=== PATIENT | female | born 1960 | race Hispanic/Latino ===

== ENCOUNTER 2017-12-14 07:40 | Day surgery (SDC) | payer SELFPAY ==
[2017-12-14] MEDS ORDERED: DILAUDID ONE ×3 (09:44→12:02)
[2017-12-14] MEDS ORDERED: XYLOCAINE MPF 2% ONE (09:44)
[2017-12-14] MEDS ORDERED: DIPRIVAN 10 MG/ML IV ONE (09:44)
[2017-12-14] MEDS ORDERED: DILAUDID IV PRN (09:47)
[2017-12-14] MEDS ORDERED: ZOFRAN IV PRN (09:47)
--- NOTE | 2017-12-14 09:47 | Anesthesia Day of Surgery ---
Anesthesia Day of Surgery - Day of Surgery Patient Examined: Yes Patient H&P Reviewed: Yes Patient is NPO: Yes
--- NOTE | 2017-12-14 09:47 | Anesthesia Consultation ---
Anesthesia Consult and Med Hx Date of service: 12/14/17 - Airway Anesthetic Teeth Evaluation: Good ROM Head & Neck: Adequate Mental/Hyoid Distance: Adequate Mallampati Class: Class II Intubation Access Assessment: Probably Good - Pulmonary Exam CTA: Yes - Cardiac Exam Cardiac Exam: RRR - Pre-Operative Health Status ASA Pre-Surgery Classification: ASA2 Proposed Anesthetic Plan: General - Pulmonary Hx Smoking: Yes (QUIT 30 YEARS AGO) - Cardiovascular System Hx Hypertension: Yes (5 YEARS. HL) - Central Nervous System Hx Psychiatric Problems: No - Other Systems Hx Alcohol Use: Yes (SOCIALLY) Hx Substance Use: No Hx Obesity: Yes
[2017-12-14] MEDS ORDERED: ANCEF/STERILE WATER 2 GM/20 ML 2 GM/20 ML SYRINGE IV NR (10:00)
[2017-12-14] MEDS ORDERED: LACTATED RINGERS 1,000 ML IV SCH (10:00)
[2017-12-14] MEDS ORDERED: ZEMURON IV ONE (10:04)
[2017-12-14] MEDS ORDERED: ADRENALIN ONE (10:25)
[2017-12-14] MEDS ORDERED: NACL 0.9% 500 ML IRRIGATION ONE (10:30)
[2017-12-14] MEDS ORDERED: XYLOCAINE 1% 20 mL INFILTRATI ONE (10:30)
[2017-12-14] MEDS ORDERED: XYLOCAINE 1%/ EPI 1:100,000 INFILTRATI ONE ×2 (10:30→11:03)
[2017-12-14] MEDS ORDERED: NACL 0.9% IR ONE (10:30)
[2017-12-14] MEDS ORDERED: LACTATED RINGERS IV ONE (10:30)
[2017-12-14] MEDS ORDERED: ADRENALIN IR ONE (10:30)
[2017-12-14] MEDS ORDERED: ZOFRAN ONE (10:57)
[2017-12-14] MEDS ORDERED: DECADRON ONE (10:57)
[2017-12-14] MEDS ORDERED: XYLOCAINE 1% 20 mL ONE (11:12)
[2017-12-14] MEDS ORDERED: NACL 0.9% 500 ML 500 ML ONE (11:28)
[2017-12-14] MEDS ORDERED: LOPRESSOR IV ONE (12:44)
[2017-12-14] MEDS ORDERED: PERCOCET 5/325 PO PRN (14:35)
--- NOTE | 2017-12-14 14:44 | Short Stay Summary ---
Short Stay Documentation Date of service: 12/14/17 Narrative H&P: 57 year old female with unacceptable cosmetic appearance underwent liposuction of the axilla, bra rolls and posterior waistline with fat grafting to the buttocks and hips. - History Past Medical History: hypertension Past Surgical History: hysterectomy, Other (Liposuction, breast reduction) Social history: , lives with family - Allergies and Medications Current Medications: Allergies No Known Allergies Allergy (Verified 12/13/17 15:40) Home Medications Medication Instructions Recorded Confirmed Last Taken Type Atorvastatin Calcium [Lipitor] 80 mg PO DAILY 12/13/17 12/13/17 Unknown History Lisinopril/Hydrochlorothiazide 1 tab PO QDAY 12/13/17 12/13/17 Unknown History [Zestoretic 20-12.5 mg] Active Medications Hydromorphone HCl (Dilaudid) 0.5 mg IV Q10MIN PRN PRN Reason: Pain , Severe (7-10) Stop: 12/14/17 23:00 Lactated Ringer's (Lactated Ringers) 1,000 mls @ 100 mls/hr IV DIRECT ALEXUS Last Admin: 12/14/17 10:18 Dose: 100 mls/hr Cefazolin Sodium (Ancef/Sterile Water 2 Gm/20 Ml) 2 gm in 20 mls @ 80 mls/hr IV PREOP NR; Protocol Stop: 12/14/17 23:00 Ondansetron HCl (Zofran) 4 mg IV ONCE PRN PRN Reason: Nausea And Vomiting - Physical exam General appearance: no acute distress, well-nourished Integumentary: no rash, no growths HEENT: Atraumatic, PERRLA, EOMI Lungs: Clear to auscultation Breasts: normal Heart: Regular rate, Normal S1, Normal S2 Gastrointestinal: normal Female Genitourinary: deferred Rectal Exam: deferred Extremities: no ischemia, pulses intact, Full ROM Neurological: Normal gait - Brief post op/procedure progress note Date of procedure: 12/14/17 Pre-op diagnosis: Unacceptable Cosmetic Appearance Procedure: Liposuction of the axilla, bra rolls and posterior waistline with fat grafting to the buttocks and hips. Anesthesia: GETA Surgeon: ESTIVEN SHANKS Estimated blood loss: 50-100ml Pathology: none Condition: stable - Hospital course Hospital course: Uneventful. Patient tolerated the procedure well. - Disposition Condition at discharge: Good Disposition: DC-01 TO HOME OR SELFCARE - Discharge Diagnoses (1) Elective procedure for unacceptable cosmetic appearance Status: Acute Short Stay Discharge Plan Follow up with: PRIMARY CARE, [Primary Care Provider] - 7 Days
[2017-12-14] MEDS ORDERED: NORMODYNE IV PRN (14:54)
[2017-12-14 18:04] VITALS: BP 139/86
--- NOTE | 2017-12-18 06:04 | Post Anesthesia Evaluation ---
- Post Anesthesia Evaluation Patient Participated: Yes Airway Patent: Yes Stable Respiratory Function: Yes Nausea/Vomiting: No Temp > 96.8F: Yes Pain Manageable: Yes Adequeate Hydration: Yes Anesthesia Complications: No Block Receding Appropriately: Not Applicable Patient on Ventilator: No
--- NOTE | 2017-12-18 11:00 | Operative Report ---
Operative Report Operative Report: Plastic Surgery Operative Note Preop Diagnosis: Unacceptable cosmetic appearance Postop Diagnosis: Same Procedure: Liposuction of bra rolls, axilla, posterior waist and lower back with fat grafting to the butt and hips. Surgeon: Dr. Carole Chan Financial [employer] Counselor: None Anesthesia: GETA Specimens: None Estimated Blood Loss: 50cc Indications: This patient is a 57 year old female who persented with complaint of deficient buttock volume and projection as well as excess adiposity of her back. She desired liposculpture of her back with transfer of harvested fat to her buttocks to enhance shape. We discussed the benefits and risks of the procedure including but not limited to bleeding, infection, skin necrosis, scarring, keloids, fat resorption, fat necrosis, fat embolus, asymmetry and the need for additional fat grafting procedures. Patient understands and accepts these risks and desires to proceed with surgery. Informed consent obtained and the patient was marked in preop holding. Procedure: Patient was brought into the operating room and placed supine on the OR table. After induction of adequate GETA the patient was then placed in the prone position and once again secured to the OR table with all pressure points padded. After time-out, 1% lidocaine with epinephrine was injected into the marked cannula entry sites, and an 11 blade was used to make 3mm incisions. Tumescent solution was infiltrated into the subcutaneous fat in all planned areas of liposuction of the back, for a total of 4 liters. Adequate time was allowed for epinephrine effect and then, using power-assisted liposuction 4mm cannula, fat was suctioned in all areas of the back, posterior waist and lower back until the point of return of bloody aspirate. Fat was collected in a sterile cannister and later transferred to 60cc syringes. We then turned our attention to the fat grafting portion of the procedure. Using 60cc syringes and a blunt injector cannula, fat was grafted into the butt and hips until a desireable contour was acheived. In total 1080cc of pure fat was injected into each side. All incisions were then closed with 4-0 Monocryl and dressed with ABD pads before her garment (Day, FBOS) was placed. Patient was then turned to supine position, her Dash catheter was removed and she was awakened from general anesthesia. She then transferred herself with assistance back to the stretcher in prone position and was transferred to PACU in stable condition. There were no complications. Patient tolerated the procedure well. In total 2.5L of pure fat and 1.5L of fluid was aspirated.
== END 2017-12-14 17:00 | disposition home or self-care (01) ==
LOC: OR 07:40
PROVIDERS: ATTEND Plastic Surgery
DX: Z41.1 Encounter for cosmetic surgery (principal); I10 Essential (primary) hypertension; E66.9 Obesity, unspecified; Z68.35 Body mass index [BMI] 35.0-35.9, adult; Z79.899 Other long term (current) drug therapy; Z96.641 Presence of right artificial hip joint; Z90.710 Acquired absence of both cervix and uterus; Z87.891 Personal history of nicotine dependence; Z98.890 Other specified postprocedural states
CPT/HCPCS: 15877; J0171; J0690; J1100; J1170; J2405; J2704; J7040; J7120